=== PATIENT | male | born 1965 | race Caucasian/White ===

== ENCOUNTER 2017-02-03 19:29 | Inpatient (IN) | payer SELFPAY ==
--- NOTE | ~2017-02-03 | IDS ---
Interim Discharge Summary [facility] [address] [place]. [address] NAME: GERMAINE HOYT JR : 69 STATUS : ADM IN [facility]#: [id number] AGE: 51 ADM/REG DATE : 02/03/17 MR#: [id number] REPORT SERV DATE: 02/07/17 DICTATED BY: ZANDER VALLEJO DATE: 02/07/17 REPORT STATUS : Draft TRANSCRIBED BY: MODL DATE: 02/07/17 ADMISSION DATE: 02/03/2017 DISCHARGE DATE: REASON FOR ADMISSION: Sepsis secondary to right lower extremity cellulitis. HISTORY OF PRESENT ILLNESS: Please refer Dr. Boo's history and physical for complete details regarding the patient's admission. The patient was admitted to hospice service for management of his sepsis from cellulitis. HOSPITAL COURSE: The patient has had uncomplicated hospital course. The patient has a history of having known chronic lower extremity edema for which he takes Lasix p.r.n. but he has not taken a dose in over 6 months. He presented with right lower leg cellulitis. The patient had a white blood cell count of around 26,000 at the time of admission. He was started on vancomycin and Zosyn on day one, and when I assumed care of this patient which was on 02/04/2017, I switched him over to vancomycin and Ancef. His white blood cell count has now trended down nicely and is normal. He still continues to have some erythema and swelling but has slowly improved. We are obtaining a CT scan of his right lower extremity just to rule out cellulitis given the amount of swelling he has. The patient responded very nicely to Lasix diuresis; however, he has remained hypokalemic secondary to Lasix, and he is on 120 mEq daily plus supplemental. Anticipate needing about two more days of IV antibiotics if his CAT scan is negative for abscess. At the time of discharge, he will likely need to be switched to oral Lasix and to have potassium supplementation. INTERIM DIAGNOSES: 1. Sepsis secondary to right lower extremity cellulitis, present on admission, slowly improving. 2. Chronic lower extremity edema with improvement with Lasix diuresis. 3. Morbid obesity. 4. Hypokalemia secondary to Lasix diuresis. 5. Hypertension. 6. Probable obstructive sleep apnea. DISPOSITION: Anticipate discharging the patient home approximately on Tuesday, and like as stated above, will need oral Lasix and oral potassium at the time of dictation along with antibiotics. Further disposition per oncoming hospitalist starting 02/08/2017. SHY/CARLYLE Zander Vallejo MD / [id number] Interim Discharge Summary [address] [address] NAME: GERMAINE HOYT : 69 STATUS : ADM IN PAT#: [id number] AGE: 51 ADM/REG DATE : 02/03/17 MR#: [id number] REPORT SERV DATE: 02/07/17 DICTATED BY: ZANDER VALLEJO DATE: 02/07/17 REPORT STATUS : Draft TRANSCRIBED BY: CARLYLE DATE: 02/07/17 CC: MD Corry Shaw D.O.
--- NOTE | ~2017-02-03 | HP ---
History And Physical [facility] [id number] [place]. [address] NAME: GERMAINE HOYT JR : 69 STATUS : ADM IN [facility]#: [id number] AGE: 51 ADM/REG DATE : 02/03/17 MR#: [id number] REPORT SERV DATE: 02/03/17 DICTATED BY: BRITTANIE PULIDO DATE: 02/03/17 REPORT STATUS : Draft TRANSCRIBED BY: MODL DATE: 02/03/17 DATE OF ADMISSION: 02/03/2017 CHIEF COMPLAINT: Fevers, chills, and cough. HISTORY OF PRESENT ILLNESS: The patient is a 51-year-old male who has a past medical history significant for: 1. Colon cancer, status post resection approximately 10 years prior. 2. Hypertension. Presents today with above complaints. States he did not feel good when he got up this morning, had some kind of nonspecific problem, just felt bad, but he could not be specific. He states he has been battling a cough for the past two to three weeks that did not seem to be worse today. He did try some of his 's albuterol and apparently had some palpitations, tremors, and felt "hot." He then went home, and he has been doing some errands in town and noted that he had a fever of 104. He then went to see his primary care doctor. They apparently tested him for the flu and he was negative. What they suggest that he take Tamiflu and Omnicef. He states that he had just started feeling some symptoms in his right lower extremity. He said it felt somewhat hot, but did not think much about it. When he got home, it became rather more swollen. He called his PCP and was referred back to the emergency room. Here, he was noted to have elevated procalcitonin and white count. He appears to have cellulitis. He had an ultrasound, which was negative. He states he did have one bout of cellulitis years ago. He suffers from chronic edema, but has not had a lot of problems with infections. He does not recall any injury, bite, or any other reason he might have cellulitis. He is being admitted for treatment as above as well as some hypokalemia. PAST MEDICAL HISTORY: As covered above. PAST SURGICAL HISTORY: Colon resection and cholecystectomy. CURRENT MEDICATIONS: He was started on Omnicef 300 b.i.d. today, Cardizem 240 one per day, hydrochlorothiazide 25 one per day, Prinivil 40, Claritin 10, multivitamin, Tamiflu 75 b.i.d. was started today, and topical triamcinolone. ALLERGIES: ADHESIVE AND LATEX. FAMILY HISTORY: Mother has a lot of health problems, edema and hypertension among them. Father had prostate cancer. SOCIAL HISTORY: He is a nondrinker and nonsmoker. REVIEW OF SYSTEMS: HEENT: No sinus or throat. CARDIOVASCULAR: No chest pains or palpitations. PULMONARY: Chronic upper respiratory cough, mostly dry. GASTROINTESTINAL: No nausea or vomiting. History And Physical [address] [address] NAME: GERMAINE HOYT ELISSA AKINS : 69 STATUS : ADM IN [facility]#: [id number] AGE: 51 ADM/REG DATE : 02/03/17 MR#: [id number] REPORT SERV DATE: 02/03/17 DICTATED BY: BRITTANIE PULIDO DATE: 02/03/17 REPORT STATUS : Draft TRANSCRIBED BY: CARLYLE DATE: 02/03/17 GENITOURINARY: No dysuria, frequency, or urgency. NEUROMUSCULOSKELETAL: As covered in HPI. Otherwise, 14-point review of systems is negative. PHYSICAL EXAMINATION: VITAL SIGNS: BP 160/78, temperature 99.4, pulse 104, respirations 20, and sat 96%. GENERAL: He is awake, alert, and oriented. HEENT: Normocephalic, atraumatic. Sclerae nonicteric. NECK: Supple. HEART: Regular rhythm, increased rate. LUNGS: Clear to auscultation without rhonchi, rales, or wheezes. ABDOMEN: Obese, benign. EXTREMITIES: He has dependent edema in both lower extremities, right greater than left. There is erythema from approximately the ankle to the knee. It seems to be more anterior. No obvious points of injury, wounds, or abnormalities noted. LABORATORY DATA: Procalcitonin 6.92. Sodium 138, potassium 2.1, chloride 97, CO2 of 31, BUN and creatinine 12 and 1.3, with a glucose of 123. Magnesium is 1.6. Troponin 0.05. Lactate 2.4. White count 26.9, H and H of 13.6 and 40.1, platelets 288. Differential shows 71 segs and 25 bands. Ultrasound was negative for DVT to the right lower extremity. Chest x-ray report is pending per my interpretation. No acute infiltrate. Blood cultures are pending. ASSESSMENT: 1. Cellulitis. 2. Hypokalemia. 3. Chronic medical problems listed above. PLAN: The patient received vancomycin in the emergency department. We will give Zosyn also, await blood culture, serial lab, replace his K, monitor his magnesium, serial troponins, but no active chest pain complaints at this time. EKG does not show any acute changes. TIMOTHYF/CARLYLE Brittanie Pulido M.D. / [id number] CC: History And Physical [address] [address] NAME: GERMAINE HOYT JR : 69 STATUS : ADM IN [facility]#: [id number] AGE: 51 ADM/REG DATE : 02/03/17 MR#: [id number] REPORT SERV DATE: 02/03/17 DICTATED BY: BRITTANIE PULIDO DATE: 02/03/17 REPORT STATUS : Draft TRANSCRIBED BY: CARLYLE DATE: 02/03/17 Corry Mohr D.O.
--- NOTE | ~2017-02-03 | CN ---
Consultation Report [facility] [address] [place]. [address] NAME: GERMAINE HOYT JR : 69 STATUS : ADM IN PAT#: [id number] AGE: 51 ADM/REG DATE : 02/03/17 MR#: [id number] REPORT SERV DATE: 02/12/17 DICTATED BY: JENIFFER GRIFFITHS DATE: 02/12/17 REPORT STATUS : Draft TRANSCRIBED BY: MODL DATE: 02/12/17 INFECTIOUS DISEASE CONSULTATION DATE OF CONSULTATION: 02/12/2017 REASON FOR CONSULTATION: Cellulitis. HISTORY OF PRESENT ILLNESS: This is a 51-year-old man with a past medical history notable for colon cancer, for which he underwent surgical resection about 10 years ago along with hypertension. He also states that he does have some degree of chronic lower extremity edema. He relates one previous episode of outpatient cellulitis of the right leg. He was in his baseline state of health until the 24 hours prior to admission when he developed severe rigors and then felt feverish and had a fever of 104. He saw his primary care physician and was given Tamiflu and Omnicef. It was in the office when he noticed some pain in the right posterior calf, which worsened, and then his noticed the right lower leg was quite hot. With progression of these symptoms, he was told to go to the emergency department, where he was seen on the evening of 02/03 and had a temperature of 99.4, a pulse of 104 and white blood cell count of 26,900 with 25% bands and an obvious right lower extremity cellulitis. After blood cultures were obtained, he was started on vancomycin and Ancef. Over the next four days, his white blood cell count normalized down to 8.6 and he had no fever. He has continued on vancomycin. The Ancef was stopped on 02/09, and he was placed on clindamycin for a day and then cefepime was added on 02/10 because of concerns that he had continued edema and erythema and possible lack of improvement in the leg. The patient has had two ultrasounds of his right lower extremity, both negative for DVT, and underwent CT scan with IV contrast of the right lower extremity on 02/06, which showed no evidence of an abscess or other deeper infection. The patient tells me that his leg does feel better. He still has some discomfort, but it is improved. He has not really had the leg elevated. He has been in bed for the most part, but the leg is actually in a dependent position in the bed that he has. He denies any nausea, vomiting, or diarrhea. PAST MEDICAL HISTORY: As outlined above. He has also had a cholecystectomy. He did suffer some trauma to the left leg in the past. ALLERGIES: NO KNOWN DRUG ALLERGIES. PRESENT MEDICATIONS: In addition to vancomycin and cefepime include Norvasc, Cardizem CD, Lasix, heparin subcutaneously, Prinivil, Claritin, multivitamins. SOCIAL HISTORY: He lives with his . Nonsmoker and nondrinker. 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 Does not keep his legs elevated. FAMILY HISTORY: Notable for hypertension, and father had prostate cancer. REVIEW OF SYSTEMS: Consultation Report [place] [id number] [place]. [address] NAME: GERMAINE HOYT JR : 69 STATUS : ADM IN [facility]#: [id number] AGE: 51 ADM/REG DATE : 02/03/17 MR#: [id number] REPORT SERV DATE: 02/12/17 DICTATED BY: JENIFFER GRIFFITHS DATE: 02/12/17 REPORT STATUS : Draft TRANSCRIBED BY: CARLYLE DATE: 02/12/17 As outlined above and in addition, no chest pain or shortness of breath. He notes problems with control of his hypertension. He notes worsening edema in the past when he took Norvasc. He does complain of chronic dry skin and sometimes cracking of his skin in his lower legs and feet. PHYSICAL EXAMINATION: VITAL SIGNS: The patient weighs 165 kg. He is afebrile. Blood pressure 135/74, pulse 82, respiratory rate 14. GENERAL: He is alert and pleasant, in no acute distress. HEAD AND NECK: Show a clear oral cavity without thrush. Supple neck. No adenopathy. LUNGS: Clear to auscultation. CARDIAC: Regular rate and rhythm. Normal S1 and S2 without murmur, gallop, or rub. ABDOMEN: Obese, soft, and nontender. EXTREMITIES: The left lower leg and foot have some mild pitting edema and early venous stasis type changes. The right lower extremity has edema with mild erythema and warmth, most prominent on the anterolateral aspect of the lower leg. There is minimal tenderness to palpation. No areas of fluctuance. The skin of his lower extremities is dry, and there are areas of cracked skin. He has a peripheral IV in the right upper arm without phlebitis. LABORATORY STUDIES: White blood cell count is 11.3, hemoglobin 12.7, and platelets 492. I should note with regard to the white blood cell count that the Ancef was stopped on 02/09 when his white count was 9.3 and the following day, the white count went up to 12.7. Creatinine of 0.93. Liver function tests normal. Vancomycin trough yesterday 13.9. Blood cultures negative. IMAGING STUDIES: As noted. IMPRESSION: Right lower extremity cellulitis with sepsis on admission in a patient with chronic edema, dry skin, and obesity. This is likely streptococcal in etiology, and the presentation is pretty classic. The patient clearly responded to the vancomycin and Ancef he was initially started on admission with normalization of his white count in four days and no further fever. He says the leg also does feel better. However, it can take a while for edema and erythema to fully resolve in this setting, and he has not been elevating the leg and I think that is contributing to the picture that was seen. PLAN: 1. We will switch antibiotics back to Ancef alone. 2. Elevate the leg. 3. Would consider stopping the amlodipine given his chronic edema problems. 4. Discussed compression stockings with the patient and keeping the leg elevated at home, and we will discuss this further with him prior to discharge. 5. Keep the skin well lubricated. 6. Possibly change to oral antibiotics on Tuesday in two days. Consultation Report [address] [place]. [address] NAME: GERMAINE HOYT JR : 69 STATUS : ADM IN [facility]#: [id number] AGE: 51 ADM/REG DATE : 02/03/17 MR#: [id number] REPORT SERV DATE: 02/12/17 DICTATED BY: JENIFFER GRIFFITHS DATE: 02/12/17 REPORT STATUS : Draft TRANSCRIBED BY: CARLYLE DATE: 02/12/17 KYLIE/CARLYLE Jeniffer Griffiths M.D. / [id number] CC: MD Corry Shaw D.O.
--- NOTE | ~2017-02-03 | DS ---
Discharge Summary [facility] [facility] [id number] [place]. [address] NAME: GERMAINE HOYT JR : 69 STATUS : DIS IN PAT#: [id number] AGE: 51 ADM/REG DATE : 02/03/17 MR#: [id number] REPORT SERV DATE: 02/15/17 DICTATED BY: DIANNE SINGH DATE: 02/14/17 REPORT STATUS : Draft TRANSCRIBED BY: MODL DATE: 02/14/17 ADMISSION DATE: 02/03/2017 DISCHARGE DATE: 02/14/2017 This dictation is in addition to interim discharge summary dictated by Dr. Vallejo on 02/07/2017. I assumed care of the patient on 02/08/2017. At the time of my assumption of care, the patient was on IV antibiotic therapy and right lower cellulitis was noted. Despite being on IV antibiotics for several days there was no improvement noted in his cellulitis. Given his significant weight there was concern for a DVT as his Wells score was elevated at 60. Repeat Doppler ultrasound of the right lower extremity came back negative. The patient also was noted to despite being on IV antibiotics his white count started to trend up and has an erythema worsened prompting an Infectious Disease consult. Please refer to consultation note dictated by Dr. Griffihts on 02/12/2017. Per Infectious Disease recommendation, the patient was started on Ancef and with significant improvement. Given improvement noted in his lower extremities antibiotics have been switched to p.o. The patient will be discharged today. Plan has been discussed with the patient who voices understanding and is agreeable with this plan. All other information in the chief of internal medicine discharge summary remains the same. DISCHARGE DIAGNOSES: 1. Lower extremity cellulitis. 2. Hypertension. 3. Hypokalemia. 4. Morbid obesity with a BMI of 43.1. DISCHARGE MEDICATIONS: 1. Cefadroxil 1 g p.o. b.i.d. for seven days. 2. Diltiazem 240 mg p.o. at bedtime. 3. Lisinopril 40 mg p.o. every morning. 4. Loratadine 10 mg p.o. every morning. 5. Multivitamin tablet every morning. 6. Hydrochlorothiazide 25 mg p.o. every morning. 7. Furosemide 40 mg p.o. b.i.d. 8. Potassium chloride 40 mEq p.o. daily. DISPOSITION: The patient will be discharged home to follow up with primary care physician. ACTIVITY: As tolerated. DIET: Regular diet. Greater than 30 minutes were spent coordinating discharge dictation of note, medication reconciliation, providing counseling. Discharge Summary [facility] [address] [facility] [address] NAME: GERMAINE HOYT JR : 69 STATUS : DIS IN PAT#: [id number] AGE: 51 ADM/REG DATE : 02/03/17 MR#: [id number] REPORT SERV DATE: 02/15/17 DICTATED BY: DIANNE SINGH DATE: 02/14/17 REPORT STATUS : Draft TRANSCRIBED BY: CARLYLE DATE: 02/14/17 STACY/CARLYLE Dianne Singh MD / [id number] CC: MD Corry Shaw D.O.
[~2017-02-03 19:29] MED LIST: CELEBREX2 PO; LORT7 PO; NASONEX NAS; PRIN10 PO; ZYRTEC ALLGY10 MG PO
[2017-02-03 20:50] LABS: BASOPHILS 0 %; BASOPHILS ABSOLUTE 0.01 10/3/uL (0.0-0.16); EOSINOPHILS 0 %; HEMATOCRIT 40.1 % (40.0-51.0); HEMOGLOBIN 13.6 g/dL (13.6-17.8); IMMATURE GRANULOCYTES 0.3 %; IMMATURE GRANULOCYTES ABSOLUTE 0.09 10/3/uL (0.0-0.11); LYMPHOCYTES 2.3 %; LYMPHOCYTES ABSOLUTE 0.62 10/3/uL (0.67-4.30); MEAN CORPUS HGB CONC 33.9 g/dL (32.0-36.0); MEAN CORPUSCULAR HEMOGLOB 27.3 pg (26.0-34.0); MEAN PLATELET VOLUME 9.6 fL (9.2-13.0); MONOCYTES 4.2 %; MONOCYTES ABSOLUTE 1.14 10/3/uL (0.21-1.20); NEUTROPHILS 93.2 %; NEUTROPHILS ABSOLUTE 25.05 10/3/uL (2.02-8.40); RBC DISTRIBUTION WIDTH 14.1 % (12.0-16.0); RED CELL COUNT 4.99 10/6/uL (4.7-6.1)
[2017-02-03 20:55] LABS: ER CBC TAT 0 Hrs 10 Mins; MEAN CORPUSCULAR VOLUME 80.4 fL (80-100); PLATELET COUNT 288 10/3/uL (150-400); WHITE BLOOD CELLS 26.9 10/3/uL (4.5-10.5)
[2017-02-03 20:56] LABS: MANUAL DIFF NO %
[2017-02-03 21:01] LABS: INTERNATIONAL NORMAL RATI 1.2 UNITS (-); PARTIAL THROMBO TIME 28.3 SEC (22.5-37.2); PROTIME (NOT ORD) 15.3 SEC (12.0-14.5)
[2017-02-03 21:07] LABS: BUN (BLOOD UREA NITROGEN) 12 MG/DL (6-23); CALCIUM, SERUM 9.3 MG/DL (8.5-10.4); CHLORIDE, SERUM 97 MMOL/L (96-112); CO2 (CARBON DIOXIDE) 31 MMOL/L (24-34); GLUCOSE, SERUM 123 MG/DL (60-99); LACTATE 2.4 MMOL/L (0.3-2.4); SODIUM, SERUM 138 MMOL/L (135-148)
[2017-02-03 21:08] LABS: BAND NEUTROPHILS 25 %; BASOPHILS 1 %; BASOPHILS ABSOLUTE (CALC) 0.27 10/3/uL (0.0-0.16); CHEST PAIN PROFILE TAT 0 Hrs 23 Mins; ER DIFF TAT 0 Hrs 23 Mins; GFR AFRICAN AMERICAN 74 ML/MIN (>=60); GFR NON AFRICAN AMERICAN 64 ML/MIN (>=60); LYMPHOCYTES 1 %; LYMPHOCYTES ABSOLUTE (CALC) 0.27 10/3/uL (0.67-4.30); MONOCYTES 2 %; MONOCYTES ABSOLUTE (CALC) 0.54 10/3/uL (0.21-1.20); NEUTROPHILS ABSOLUTE (CALC) 25.82 10/3/uL (2.02-8.40); POTASSIUM, SERUM 2.1 MMOL/L (3.5-5.3); SEGMENTED NEUTROPHIL (0) 71 %; TOTAL NUCLEATED CELLS 100; TROPONIN I 0.05 NG/ML (<0.05)
[2017-02-03 21:09] LABS: PLATELET ESTIMATE ADQ (ADEQUATE); RBC MORPHOLOGY NORM (NORMAL)
[2017-02-03] MEDS ORDERED: TAMIFLU PO (21:25)
[2017-02-03] MEDS ORDERED: OMNICEF300 PO (21:26)
[2017-02-03] MEDS ORDERED: LISINOPRIL40 MG PO (21:26)
[2017-02-03] MEDS ORDERED: CLARIT10 PO (21:27)
[2017-02-03] MEDS ORDERED: HYDROCHLOROT25 MG PO (21:27)
[2017-02-03] MEDS ORDERED: CARTIA XT240 MG/24 PO (21:27)
[2017-02-03] MEDS ORDERED: MULTIVIT/MIN PO (21:28)
[2017-02-03] MEDS ORDERED: TRIAMCINOLONE TOP (21:29)
[2017-02-03 21:36] LABS: PROCALCITONIN 6.92 ng/mL (<0.5)
[2017-02-04 06:17] LABS: HEMOGLOBIN 13.3 g/dL (13.6-17.8); MEAN CORPUS HGB CONC 34.1 g/dL (32.0-36.0); MEAN CORPUSCULAR HEMOGLOB 27.6 pg (26.0-34.0); MEAN CORPUSCULAR VOLUME 80.9 fL (80-100); MEAN PLATELET VOLUME 9.3 fL (9.2-13.0); PLATELET COUNT 257 10/3/uL (150-400); RBC DISTRIBUTION WIDTH 14.3 % (12.0-16.0); RED CELL COUNT 4.82 10/6/uL (4.7-6.1); WHITE BLOOD CELLS 25.3 10/3/uL (4.5-10.5)
[2017-02-04 06:18] LABS: MANUAL DIFF YES %
[2017-02-04 06:37] LABS: CHLORIDE, SERUM 98 MMOL/L (96-112); CO2 (CARBON DIOXIDE) 30 MMOL/L (24-34); CREATININE 1.21 MG/DL (0.70-1.30); GFR AFRICAN AMERICAN 81 ML/MIN (>=60); GFR NON AFRICAN AMERICAN 70 ML/MIN (>=60); GLUCOSE, SERUM 135 MG/DL (60-99); PHOSPHORUS, SERUM 3.6 MG/DL (2.5-4.5); SODIUM, SERUM 139 MMOL/L (135-148); TROPONIN I 0.03 NG/ML (<0.05)
[2017-02-04 06:40] LABS: BUN (BLOOD UREA NITROGEN) 16 MG/DL (6-23); CALCIUM, SERUM 8.3 MG/DL (8.5-10.4); POTASSIUM, SERUM 2.7 MMOL/L (3.5-5.3)
[2017-02-04 07:22] LABS: BAND NEUTROPHILS 16 %; LYMPHOCYTES 5 %; LYMPHOCYTES ABSOLUTE (CALC) 1.27 10/3/uL (0.67-4.30); MONOCYTES 1 %; MONOCYTES ABSOLUTE (CALC) 0.25 10/3/uL (0.21-1.20); NEUTROPHILS ABSOLUTE (CALC) 23.78 10/3/uL (2.02-8.40); SEGMENTED NEUTROPHIL (0) 78 %; TOTAL NUCLEATED CELLS 100
[2017-02-04 07:23] LABS: PLATELET ESTIMATE ADQ (ADEQUATE); RBC MORPHOLOGY NORM (NORMAL)
[2017-02-05 06:36] LABS: BASOPHILS 0.1 %; BASOPHILS ABSOLUTE 0.01 10/3/uL (0.0-0.16); EOSINOPHILS 0.3 %; EOSINOPHILS ABSOLUTE 0.05 10/3/uL (0.0-0.53); HEMATOCRIT 36.8 % (40.0-51.0); HEMOGLOBIN 12.5 g/dL (13.6-17.8); IMMATURE GRANULOCYTES 0.3 %; IMMATURE GRANULOCYTES ABSOLUTE 0.04 10/3/uL (0.0-0.11); LYMPHOCYTES 9.7 %; LYMPHOCYTES ABSOLUTE 1.48 10/3/uL (0.67-4.30); MANUAL DIFF NO %; MEAN CORPUSCULAR HEMOGLOB 27.8 pg (26.0-34.0); MEAN CORPUSCULAR VOLUME 81.8 fL (80-100); MEAN PLATELET VOLUME 9.3 fL (9.2-13.0); MONOCYTES 4.8 %; MONOCYTES ABSOLUTE 0.74 10/3/uL (0.21-1.20); NEUTROPHILS 84.8 %; NEUTROPHILS ABSOLUTE 12.99 10/3/uL (2.02-8.40); PLATELET COUNT 213 10/3/uL (150-400); RBC DISTRIBUTION WIDTH 14.6 % (12.0-16.0); WHITE BLOOD CELLS 15.3 10/3/uL (4.5-10.5)
[2017-02-05 06:56] LABS: CALCIUM, SERUM 8.2 MG/DL (8.5-10.4); CHLORIDE, SERUM 102 MMOL/L (96-112); CO2 (CARBON DIOXIDE) 28 MMOL/L (24-34); CREATININE 1.06 MG/DL (0.70-1.30); GFR AFRICAN AMERICAN 95 ML/MIN (>=60); GFR NON AFRICAN AMERICAN 82 ML/MIN (>=60); GLUCOSE, SERUM 114 MG/DL (60-99); SODIUM, SERUM 141 MMOL/L (135-148)
[2017-02-05 07:01] LABS: BUN (BLOOD UREA NITROGEN) 12 MG/DL (6-23); PHOSPHORUS, SERUM 2.6 MG/DL (2.5-4.5); POTASSIUM, SERUM 2.5 MMOL/L (3.5-5.3)
[2017-02-06 04:35] LABS: BASOPHILS 0.3 %; BASOPHILS ABSOLUTE 0.03 10/3/uL (0.0-0.16); EOSINOPHILS 1.9 %; EOSINOPHILS ABSOLUTE 0.21 10/3/uL (0.0-0.53); HEMATOCRIT 34.9 % (40.0-51.0); HEMOGLOBIN 11.4 g/dL (13.6-17.8); IMMATURE GRANULOCYTES 0.4 %; IMMATURE GRANULOCYTES ABSOLUTE 0.04 10/3/uL (0.0-0.11); LYMPHOCYTES 15.5 %; LYMPHOCYTES ABSOLUTE 1.71 10/3/uL (0.67-4.30); MEAN CORPUS HGB CONC 32.7 g/dL (32.0-36.0); MEAN CORPUSCULAR HEMOGLOB 26.5 pg (26.0-34.0); MEAN CORPUSCULAR VOLUME 81.2 fL (80-100); MEAN PLATELET VOLUME 9.7 fL (9.2-13.0); MONOCYTES 7.4 %; MONOCYTES ABSOLUTE 0.82 10/3/uL (0.21-1.20); NEUTROPHILS 74.5 %; NEUTROPHILS ABSOLUTE 8.22 10/3/uL (2.02-8.40); PLATELET COUNT 220 10/3/uL (150-400); RBC DISTRIBUTION WIDTH 14.7 % (12.0-16.0)
[2017-02-06 04:37] LABS: MANUAL DIFF NO %
[2017-02-06 04:50] LABS: BUN (BLOOD UREA NITROGEN) 11 MG/DL (6-23); CHLORIDE, SERUM 100 MMOL/L (96-112); CREATININE 0.96 MG/DL (0.70-1.30); GFR AFRICAN AMERICAN 107 ML/MIN (>=60); GFR NON AFRICAN AMERICAN 92 ML/MIN (>=60); GLUCOSE, SERUM 111 MG/DL (60-99); PHOSPHORUS, SERUM 2.8 MG/DL (2.5-4.5); SODIUM, SERUM 141 MMOL/L (135-148)
[2017-02-06 04:52] LABS: CO2 (CARBON DIOXIDE) 33 MMOL/L (24-34); POTASSIUM, SERUM 2.6 MMOL/L (3.5-5.3)
[2017-02-06 22:28] LABS: POTASSIUM, SERUM 3.2 MMOL/L (3.5-5.3)
[2017-02-07 06:25] LABS: BASOPHILS 0.3 %; BASOPHILS ABSOLUTE 0.03 10/3/uL (0.0-0.16); EOSINOPHILS 4.1 %; EOSINOPHILS ABSOLUTE 0.35 10/3/uL (0.0-0.53); HEMATOCRIT 36.7 % (40.0-51.0); IMMATURE GRANULOCYTES 0.3 %; IMMATURE GRANULOCYTES ABSOLUTE 0.03 10/3/uL (0.0-0.11); LYMPHOCYTES 19.6 %; LYMPHOCYTES ABSOLUTE 1.68 10/3/uL (0.67-4.30); MEAN CORPUS HGB CONC 32.7 g/dL (32.0-36.0); MEAN CORPUSCULAR HEMOGLOB 26.7 pg (26.0-34.0); MEAN CORPUSCULAR VOLUME 81.6 fL (80-100); MEAN PLATELET VOLUME 9.6 fL (9.2-13.0); MONOCYTES 12.3 %; MONOCYTES ABSOLUTE 1.06 10/3/uL (0.21-1.20); NEUTROPHILS 63.4 %; NEUTROPHILS ABSOLUTE 5.44 10/3/uL (2.02-8.40); PLATELET COUNT 249 10/3/uL (150-400); RBC DISTRIBUTION WIDTH 14.6 % (12.0-16.0); WHITE BLOOD CELLS 8.6 10/3/uL (4.5-10.5)
[2017-02-07 06:29] LABS: MANUAL DIFF NO %
[2017-02-07 06:31] LABS: BUN (BLOOD UREA NITROGEN) 13 MG/DL (6-23); CALCIUM, SERUM 8.8 MG/DL (8.5-10.4); CHLORIDE, SERUM 102 MMOL/L (96-112); CO2 (CARBON DIOXIDE) 30 MMOL/L (24-34); CREATININE 0.92 MG/DL (0.70-1.30); GFR AFRICAN AMERICAN 113 ML/MIN (>=60); GFR NON AFRICAN AMERICAN 97 ML/MIN (>=60); PHOSPHORUS, SERUM 2.3 MG/DL (2.5-4.5); SODIUM, SERUM 141 MMOL/L (135-148)
[2017-02-07 06:32] LABS: GLUCOSE, SERUM 141 MG/DL (60-99); POTASSIUM, SERUM 2.9 MMOL/L (3.5-5.3)
[2017-02-08 06:46] LABS: BASOPHILS 0.6 %; BASOPHILS ABSOLUTE 0.05 10/3/uL (0.0-0.16); EOSINOPHILS ABSOLUTE 0.35 10/3/uL (0.0-0.53); HEMATOCRIT 37.6 % (40.0-51.0); HEMOGLOBIN 12.5 g/dL (13.6-17.8); IMMATURE GRANULOCYTES ABSOLUTE 0.09 10/3/uL (0.0-0.11); LYMPHOCYTES 22.9 %; LYMPHOCYTES ABSOLUTE 1.98 10/3/uL (0.67-4.30); MANUAL DIFF NO %; MEAN CORPUS HGB CONC 33.2 g/dL (32.0-36.0); MEAN CORPUSCULAR HEMOGLOB 27.1 pg (26.0-34.0); MEAN CORPUSCULAR VOLUME 81.4 fL (80-100); MEAN PLATELET VOLUME 9.5 fL (9.2-13.0); MONOCYTES 13.4 %; MONOCYTES ABSOLUTE 1.16 10/3/uL (0.21-1.20); NEUTROPHILS 58.1 %; NEUTROPHILS ABSOLUTE 5.03 10/3/uL (2.02-8.40); PLATELET COUNT 321 10/3/uL (150-400); RBC DISTRIBUTION WIDTH 14.4 % (12.0-16.0); RED CELL COUNT 4.62 10/6/uL (4.7-6.1); WHITE BLOOD CELLS 8.7 10/3/uL (4.5-10.5)
[2017-02-08 06:57] LABS: BUN (BLOOD UREA NITROGEN) 11 MG/DL (6-23); CALCIUM, SERUM 8.8 MG/DL (8.5-10.4); CHLORIDE, SERUM 99 MMOL/L (96-112); CO2 (CARBON DIOXIDE) 33 MMOL/L (24-34); GFR AFRICAN AMERICAN 102 ML/MIN (>=60); GFR NON AFRICAN AMERICAN 88 ML/MIN (>=60); GLUCOSE, SERUM 113 MG/DL (60-99); PHOSPHORUS, SERUM 3.4 MG/DL (2.5-4.5); SODIUM, SERUM 143 MMOL/L (135-148)
[2017-02-09 06:54] LABS: BASOPHILS 0.5 %; BASOPHILS ABSOLUTE 0.05 10/3/uL (0.0-0.16); EOSINOPHILS 4.6 %; EOSINOPHILS ABSOLUTE 0.43 10/3/uL (0.0-0.53); HEMATOCRIT 36.4 % (40.0-51.0); HEMOGLOBIN 12.4 g/dL (13.6-17.8); IMMATURE GRANULOCYTES 3.6 %; IMMATURE GRANULOCYTES ABSOLUTE 0.33 10/3/uL (0.0-0.11); LYMPHOCYTES 22.3 %; LYMPHOCYTES ABSOLUTE 2.07 10/3/uL (0.67-4.30); MEAN CORPUS HGB CONC 34.1 g/dL (32.0-36.0); MEAN CORPUSCULAR HEMOGLOB 27.1 pg (26.0-34.0); MEAN CORPUSCULAR VOLUME 79.5 fL (80-100); MEAN PLATELET VOLUME 9.5 fL (9.2-13.0); MONOCYTES 11.8 %; MONOCYTES ABSOLUTE 1.09 10/3/uL (0.21-1.20); NEUTROPHILS 57.2 %; PLATELET COUNT 357 10/3/uL (150-400); RBC DISTRIBUTION WIDTH 14.7 % (12.0-16.0); RED CELL COUNT 4.58 10/6/uL (4.7-6.1); WHITE BLOOD CELLS 9.3 10/3/uL (4.5-10.5)
[2017-02-09 06:57] LABS: MANUAL DIFF NO %
[2017-02-09 07:10] LABS: A/G RATIO 0.6 (0.7-1.9); ALBUMIN 2.9 G/DL (3.5-5.0); ALKALINE PHOSPHATASE 92 U/L (45-117); BUN (BLOOD UREA NITROGEN) 13 MG/DL (6-23); CALCIUM, SERUM 8.8 MG/DL (8.5-10.4); CHLORIDE, SERUM 97 MMOL/L (96-112); CO2 (CARBON DIOXIDE) 33 MMOL/L (24-34); CREATININE 0.94 MG/DL (0.70-1.30); GFR AFRICAN AMERICAN 110 ML/MIN (>=60); GFR NON AFRICAN AMERICAN 95 ML/MIN (>=60); GLOBULIN 4.5 G/DL (2.5-4.1); GLUCOSE, SERUM 116 MG/DL (60-99); PHOSPHORUS, SERUM 3.6 MG/DL (2.5-4.5); POTASSIUM, SERUM 3.1 MMOL/L (3.5-5.3); SGOT(AST) 26 U/L (5-40); SGPT(ALT) 37 U/L (5-65); SODIUM, SERUM 139 MMOL/L (135-148); TOTAL BILIRUBIN 0.9 MG/DL (0-1.2); TOTAL PROTEIN 7.4 G/DL (6.0-8.5)
[2017-02-10 05:56] LABS: BASOPHILS 0.6 %; BASOPHILS ABSOLUTE 0.07 10/3/uL (0.0-0.16); EOSINOPHILS 3.7 %; EOSINOPHILS ABSOLUTE 0.47 10/3/uL (0.0-0.53); HEMATOCRIT 38.3 % (40.0-51.0); HEMOGLOBIN 12.5 g/dL (13.6-17.8); IMMATURE GRANULOCYTES 3.2 %; LYMPHOCYTES 19.6 %; LYMPHOCYTES ABSOLUTE 2.48 10/3/uL (0.67-4.30); MEAN CORPUS HGB CONC 32.6 g/dL (32.0-36.0); MEAN CORPUSCULAR HEMOGLOB 26.6 pg (26.0-34.0); MEAN CORPUSCULAR VOLUME 81.5 fL (80-100); MEAN PLATELET VOLUME 9.5 fL (9.2-13.0); MONOCYTES 9.2 %; MONOCYTES ABSOLUTE 1.17 10/3/uL (0.21-1.20); NEUTROPHILS 63.7 %; NEUTROPHILS ABSOLUTE 8.07 10/3/uL (2.02-8.40); PLATELET COUNT 386 10/3/uL (150-400); RBC DISTRIBUTION WIDTH 14.5 % (12.0-16.0); WHITE BLOOD CELLS 12.7 10/3/uL (4.5-10.5)
[2017-02-10 06:04] LABS: MANUAL DIFF NO %
[2017-02-10 06:27] LABS: A/G RATIO 0.7 (0.7-1.9); ALBUMIN 2.8 G/DL (3.5-5.0); ALKALINE PHOSPHATASE 89 U/L (45-117); BUN (BLOOD UREA NITROGEN) 14 MG/DL (6-23); CALCIUM, SERUM 9.2 MG/DL (8.5-10.4); CHLORIDE, SERUM 100 MMOL/L (96-112); CO2 (CARBON DIOXIDE) 32 MMOL/L (24-34); CREATININE 0.97 MG/DL (0.70-1.30); GFR AFRICAN AMERICAN 106 ML/MIN (>=60); GFR NON AFRICAN AMERICAN 91 ML/MIN (>=60); GLOBULIN 4.3 G/DL (2.5-4.1); GLUCOSE, SERUM 143 MG/DL (60-99); POTASSIUM, SERUM 3.4 MMOL/L (3.5-5.3); SGOT(AST) 25 U/L (5-40); SGPT(ALT) 37 U/L (5-65); SODIUM, SERUM 139 MMOL/L (135-148); TOTAL BILIRUBIN 0.4 MG/DL (0-1.2); TOTAL PROTEIN 7.1 G/DL (6.0-8.5)
[2017-02-10 10:37] LABS: PROCALCITONIN 0.27 ng/mL (<0.5)
[2017-02-11 06:00] LABS: BASOPHILS 0.5 %; BASOPHILS ABSOLUTE 0.06 10/3/uL (0.0-0.16); EOSINOPHILS 4.1 %; EOSINOPHILS ABSOLUTE 0.49 10/3/uL (0.0-0.53); HEMATOCRIT 37.3 % (40.0-51.0); HEMOGLOBIN 12.3 g/dL (13.6-17.8); IMMATURE GRANULOCYTES ABSOLUTE 0.36 10/3/uL (0.0-0.11); LYMPHOCYTES 16.9 %; LYMPHOCYTES ABSOLUTE 1.99 10/3/uL (0.67-4.30); MEAN CORPUSCULAR HEMOGLOB 26.9 pg (26.0-34.0); MEAN CORPUSCULAR VOLUME 81.4 fL (80-100); MEAN PLATELET VOLUME 9.3 fL (9.2-13.0); MONOCYTES 8.4 %; MONOCYTES ABSOLUTE 0.99 10/3/uL (0.21-1.20); NEUTROPHILS 67.1 %; NEUTROPHILS ABSOLUTE 7.92 10/3/uL (2.02-8.40); PLATELET COUNT 449 10/3/uL (150-400); RBC DISTRIBUTION WIDTH 14.7 % (12.0-16.0); RED CELL COUNT 4.58 10/6/uL (4.7-6.1); WHITE BLOOD CELLS 11.8 10/3/uL (4.5-10.5)
[2017-02-11 06:01] LABS: MANUAL DIFF NO %
[2017-02-11 06:25] LABS: A/G RATIO 0.6 (0.7-1.9); ALBUMIN 2.8 G/DL (3.5-5.0); ALKALINE PHOSPHATASE 87 U/L (45-117); BUN (BLOOD UREA NITROGEN) 14 MG/DL (6-23); CALCIUM, SERUM 8.9 MG/DL (8.5-10.4); CHLORIDE, SERUM 101 MMOL/L (96-112); CO2 (CARBON DIOXIDE) 30 MMOL/L (24-34); CREATININE 0.92 MG/DL (0.70-1.30); GFR AFRICAN AMERICAN 113 ML/MIN (>=60); GFR NON AFRICAN AMERICAN 97 ML/MIN (>=60); GLOBULIN 4.4 G/DL (2.5-4.1); GLUCOSE, SERUM 120 MG/DL (60-99); SGOT(AST) 24 U/L (5-40); SGPT(ALT) 40 U/L (5-65); SODIUM, SERUM 141 MMOL/L (135-148); TOTAL BILIRUBIN 0.8 MG/DL (0-1.2); TOTAL PROTEIN 7.2 G/DL (6.0-8.5)
[2017-02-12 07:39] LABS: BASOPHILS 0.4 %; BASOPHILS ABSOLUTE 0.05 10/3/uL (0.0-0.16); EOSINOPHILS 3.4 %; EOSINOPHILS ABSOLUTE 0.38 10/3/uL (0.0-0.53); HEMATOCRIT 38.2 % (40.0-51.0); HEMOGLOBIN 12.7 g/dL (13.6-17.8); IMMATURE GRANULOCYTES 1.2 %; IMMATURE GRANULOCYTES ABSOLUTE 0.13 10/3/uL (0.0-0.11); LYMPHOCYTES 19.3 %; LYMPHOCYTES ABSOLUTE 2.17 10/3/uL (0.67-4.30); MEAN CORPUS HGB CONC 33.2 g/dL (32.0-36.0); MEAN CORPUSCULAR VOLUME 81.3 fL (80-100); MEAN PLATELET VOLUME 9.1 fL (9.2-13.0); MONOCYTES 6.7 %; MONOCYTES ABSOLUTE 0.76 10/3/uL (0.21-1.20); NEUTROPHILS ABSOLUTE 7.77 10/3/uL (2.02-8.40); PLATELET COUNT 492 10/3/uL (150-400); RBC DISTRIBUTION WIDTH 14.6 % (12.0-16.0); WHITE BLOOD CELLS 11.3 10/3/uL (4.5-10.5)
[2017-02-12 07:42] LABS: MANUAL DIFF NO %
[2017-02-12 07:55] LABS: A/G RATIO 0.6 (0.7-1.9); ALKALINE PHOSPHATASE 96 U/L (45-117); BUN (BLOOD UREA NITROGEN) 14 MG/DL (6-23); CALCIUM, SERUM 9.4 MG/DL (8.5-10.4); CHLORIDE, SERUM 100 MMOL/L (96-112); CO2 (CARBON DIOXIDE) 30 MMOL/L (24-34); CREATININE 0.93 MG/DL (0.70-1.30); GFR AFRICAN AMERICAN 111 ML/MIN (>=60); GFR NON AFRICAN AMERICAN 96 ML/MIN (>=60); GLUCOSE, SERUM 115 MG/DL (60-99); PHOSPHORUS, SERUM 4.1 MG/DL (2.5-4.5); POTASSIUM, SERUM 3.7 MMOL/L (3.5-5.3); SGOT(AST) 26 U/L (5-40); SGPT(ALT) 48 U/L (5-65); SODIUM, SERUM 141 MMOL/L (135-148); TOTAL BILIRUBIN 0.5 MG/DL (0-1.2)
[2017-02-13 06:30] LABS: BASOPHILS 0.5 %; BASOPHILS ABSOLUTE 0.05 10/3/uL (0.0-0.16); EOSINOPHILS ABSOLUTE 0.22 10/3/uL (0.0-0.53); HEMATOCRIT 39.7 % (40.0-51.0); HEMOGLOBIN 12.6 g/dL (13.6-17.8); IMMATURE GRANULOCYTES 0.9 %; LYMPHOCYTES 23.1 %; LYMPHOCYTES ABSOLUTE 2.52 10/3/uL (0.67-4.30); MEAN CORPUS HGB CONC 31.7 g/dL (32.0-36.0); MEAN CORPUSCULAR HEMOGLOB 26.3 pg (26.0-34.0); MEAN CORPUSCULAR VOLUME 82.9 fL (80-100); MONOCYTES 9.3 %; MONOCYTES ABSOLUTE 1.01 10/3/uL (0.21-1.20); NEUTROPHILS 64.2 %; PLATELET COUNT 424 10/3/uL (150-400); RBC DISTRIBUTION WIDTH 14.9 % (12.0-16.0); RED CELL COUNT 4.79 10/6/uL (4.7-6.1); WHITE BLOOD CELLS 10.9 10/3/uL (4.5-10.5)
[2017-02-13 06:31] LABS: MANUAL DIFF NO %
[2017-02-13 06:48] LABS: A/G RATIO 0.6 (0.7-1.9); ALBUMIN 2.8 G/DL (3.5-5.0); ALKALINE PHOSPHATASE 87 U/L (45-117); BUN (BLOOD UREA NITROGEN) 16 MG/DL (6-23); CALCIUM, SERUM 8.9 MG/DL (8.5-10.4); CHLORIDE, SERUM 103 MMOL/L (96-112); CO2 (CARBON DIOXIDE) 27 MMOL/L (24-34); CREATININE 0.96 MG/DL (0.70-1.30); GFR AFRICAN AMERICAN 107 ML/MIN (>=60); GFR NON AFRICAN AMERICAN 92 ML/MIN (>=60); GLOBULIN 4.7 G/DL (2.5-4.1); GLUCOSE, SERUM 120 MG/DL (60-99); PHOSPHORUS, SERUM 4.1 MG/DL (2.5-4.5); POTASSIUM, SERUM 4.2 MMOL/L (3.5-5.3); SGOT(AST) 24 U/L (5-40); SGPT(ALT) 39 U/L (5-65); SODIUM, SERUM 140 MMOL/L (135-148); TOTAL BILIRUBIN 0.4 MG/DL (0-1.2); TOTAL PROTEIN 7.5 G/DL (6.0-8.5)
[2017-02-14 06:25] LABS: BASOPHILS 0.5 %; BASOPHILS ABSOLUTE 0.05 10/3/uL (0.0-0.16); EOSINOPHILS 2.4 %; EOSINOPHILS ABSOLUTE 0.25 10/3/uL (0.0-0.53); HEMATOCRIT 38.7 % (40.0-51.0); HEMOGLOBIN 12.6 g/dL (13.6-17.8); IMMATURE GRANULOCYTES 0.6 %; IMMATURE GRANULOCYTES ABSOLUTE 0.06 10/3/uL (0.0-0.11); LYMPHOCYTES 22.7 %; LYMPHOCYTES ABSOLUTE 2.36 10/3/uL (0.67-4.30); MEAN CORPUS HGB CONC 32.6 g/dL (32.0-36.0); MEAN CORPUSCULAR HEMOGLOB 26.7 pg (26.0-34.0); MEAN PLATELET VOLUME 9.1 fL (9.2-13.0); MONOCYTES ABSOLUTE 0.83 10/3/uL (0.21-1.20); NEUTROPHILS 65.8 %; NEUTROPHILS ABSOLUTE 6.84 10/3/uL (2.02-8.40); PLATELET COUNT 470 10/3/uL (150-400); RBC DISTRIBUTION WIDTH 14.6 % (12.0-16.0); RED CELL COUNT 4.72 10/6/uL (4.7-6.1); WHITE BLOOD CELLS 10.4 10/3/uL (4.5-10.5)
[2017-02-14 06:27] LABS: MANUAL DIFF NO %
[2017-02-14 06:31] LABS: A/G RATIO 0.6 (0.7-1.9); ALBUMIN 2.9 G/DL (3.5-5.0); ALKALINE PHOSPHATASE 92 U/L (45-117); BUN (BLOOD UREA NITROGEN) 15 MG/DL (6-23); CALCIUM, SERUM 9.3 MG/DL (8.5-10.4); CHLORIDE, SERUM 102 MMOL/L (96-112); CO2 (CARBON DIOXIDE) 30 MMOL/L (24-34); CREATININE 1.02 MG/DL (0.70-1.30); GFR AFRICAN AMERICAN 100 ML/MIN (>=60); GFR NON AFRICAN AMERICAN 86 ML/MIN (>=60); GLOBULIN 5.1 G/DL (2.5-4.1); GLUCOSE, SERUM 130 MG/DL (60-99); PHOSPHORUS, SERUM 4.1 MG/DL (2.5-4.5); POTASSIUM, SERUM 4.1 MMOL/L (3.5-5.3); SGOT(AST) 28 U/L (5-40); SGPT(ALT) 40 U/L (5-65); SODIUM, SERUM 140 MMOL/L (135-148); TOTAL BILIRUBIN 0.4 MG/DL (0-1.2)
[2017-02-14] MEDS ORDERED: PERCOCET 10/3251 TAB (10:36)
[2017-02-14] MEDS ORDERED: L40 PO (10:36)
[2017-02-14] MEDS ORDERED: KDUR20 (10:38)
[2017-02-14] MEDS ORDERED: CEFADROXIL1 GM PO (10:40)
== END 2017-02-14 14:42 | disposition home or self-care (01) | DRG 872 ==
LOC: ER 19:29 → 7NO 23:05
PROVIDERS: Hospitalist; Internal Medicine; Physician Assistant
DX: A41.9 Sepsis, unspecified organism (principal); Z68.42 Body mass index [BMI] 45.0-49.9, adult; I10 Essential (primary) hypertension; L03.116 Cellulitis of left lower limb; L03.115 Cellulitis of right lower limb; E87.6 Hypokalemia; Z85.038 Personal history of other malignant neoplasm of large intestine; E66.01 Morbid (severe) obesity due to excess calories; G47.33 Obstructive sleep apnea (adult) (pediatric)
CPT/HCPCS: 71010; 73701-RT; 80048; 80053; 80202; 83605; 83735; 84100; 84132; 84145; 84484; 85025; 85610; 85730; 87040; 93005; 93971; 96365; 97116-GP; 97161-GP; 99285; A9270-GY; J0690; J0692; J1170; J2543; J3370; Q9967